=== PATIENT | female | born 1985 | race Caucasian/White ===

== ENCOUNTER → 2019-01-17 | Outpatient (CLI) | payer OTHER ==
[~2019-01-17] MED LIST: MOTRIN 800 MG E4 TAB PO; TRAMADOL HCL50 MG PO
== END | disposition home or self-care (01) ==
LOC: US 14:30
DX: Z34.02 Encounter for supervision of normal first pregnancy, second trimester (principal); Z3A.20 20 weeks gestation of pregnancy

== ENCOUNTER → 2019-03-09 | Outpatient (CLI) | payer OTHER | END | disposition home or self-care (01) | LOC: LAB 05:29 | DX: R73.09 Other abnormal glucose (principal) ==

== ENCOUNTER → 2022-09-30 | Outpatient (CLI) | payer OTHER ==
[2022-10-05 05:06] LABS: CODFISH, IGE <0.10 kU/L (Class 0); EGG WHITE, IGE 0.13 kU/L (Class 0/I); MILK (COW), IGE <0.10 kU/L (Class 0); PEANUT, IGE 0.27 kU/L (Class 0/I); SOYBEAN, IGE <0.10 kU/L (Class 0); WHEAT, IGE 0.34 kU/L (Class I)
[2022-10-05 16:07] LABS: ALTERNARIA ALTERNATA, IGE <0.10 kU/L (Class 0); AMERICAN ELM, IGE 1.12 kU/L (Class II); ASPERGILLUS FUMIGATU, IGE <0.10 kU/L (Class 0); BERMUDA GRASS, IGE 5.99 kU/L (Class IV); CLADOSPORIUM HERBARU, IGE <0.10 kU/L (Class 0); D FARINAE MITE 5.81 kU/L (Class IV); D PTERONYSSINUS 4.42 kU/L (Class IV); DOG DANDER, IGE 1.11 kU/L (Class II); MAPLE LEAF SYCAMORE, IGE 1.03 kU/L (Class II); MAPLE/BOX ELDER, IGE 1.73 kU/L (Class III); MOUSE URINE IGE <0.10 kU/L (Class 0); PENICILLIUM CHRYSOGENUM, IGE <0.10 kU/L (Class 0); ROUGH PIGWEED, IGE 0.68 kU/L (Class II); SHEEP SORREL (DOCK), IGE 0.12 kU/L (Class 0/I); WALNUT TREE, IGE 3.72 kU/L (Class III); WHITE ASH, IGE 5.33 kU/L (Class IV); WHITE MULBERRY, IGE <0.10 kU/L (Class 0)
== END | disposition home or self-care (01) ==
LOC: LAB 13:27
PROVIDERS: ATTEND Specialist
DX: J30.9 Allergic rhinitis, unspecified (principal)